=== PATIENT | male | born 1985 | race Caucasian/White ===

== ENCOUNTER 2018-12-27 09:00 | Outpatient (CLI) | payer OTHER ==
[2018-12-28 12:26] LABS: HEPATITIS A IGM NON-REACTIVE (NON-REACTIVE); HEPATITIS B SURFACE ANTIGEN NON-REACTIVE (NON-REACTIVE); HEPATITIS C ANTIBODY NON-REACTIVE (NON-REACTIVE)
[2018-12-28 14:49] LABS: HIV AG/AB 4TH GEN NON-REACTIVE (NON-REACTIVE)
[2018-12-28 18:41] LABS: TRICHOMONAS VAGINALIS DNA NEGATIVE (NEGATIVE)
[2018-12-29 13:36] LABS: HSV 2 IGG TYPE SPECIFIC AB <0.90 index
== END 2018-12-27 23:59 | disposition home or self-care (01) ==
LOC: LAB.WCP 09:00
PROVIDERS: ATTEND Family Medicine
DX: Z11.3 Encounter for screening for infections with a predominantly sexual mode of transmission (principal)
CPT/HCPCS: 36415; 80074; 81599; 86592; 86695; 86696; 87389; 87491; 87591; 87661

== ENCOUNTER 2019-03-19 14:13 | Outpatient (CLI) | payer OTHER ==
[2019-03-20 20:13] VITALS: BP 138/84
--- NOTE | 2019-03-20 20:13 | SLEEP CARE CONSULTATION ---
Information from patient questionnaire entered by Eugenia Vail. I have reviewed and concur with the information entered by Eugenia Vail. This document represents the service I personally performed and the decisions made by me, Melo Jean MD, [facility]. History of Present Illness Reason for Visit: New patient, Previously diagnosed sleep apnea Chief Complaint: reports: Insomnia, Unrefreshed sleep, Snoring, Excessive daytime sleepiness, Observed pauses in breathing, Fatigue, Frequent awakenings at night Duration of Symptoms: 10+ years Usual bedtime: 2100 Snores at night: Yes Observed to quit breathing while asleep: Yes Sleeps alone due to snoring: No Number of times waking at night: 5-10 Toss, Turn, or Twitch while sleeping: Yes Recalls having dreams: No Usually gets out of bed at: [id number] Feels refreshed in the morning: No Morning headache: No Sleepy or fatigued during the day: Yes Ever fallen asleep while driving: Yes Takes day naps: Yes Prior sleep studies: Yes Year and Where: 2011 [facility] Additional HPI information: I had the pleasure of seeing Mr. Doty today regarding obstructive sleep apnea- hypopnea. As you know, he is a 34 year old gentleman who was diagnosed with the sleep-disordered breathing at the [facility] in 2011. The AHI was 30.1 and unique oxygen saturation of 71%. He was prescribed a CPAP device set at 5 8 cmH 2O. He uses every night and all night. He feels that the pressure is not adequate. His still hears him snore through the CPAP. His memory card only contains data from 2013. He wears a nasal mask but also has a full face mask for when he cannot breathe through his nose. He gets his supplies from [employer]. He finds the treatment very helpful. He is more awake/alert during the day. 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 Patient is and lives in [place]. Have you smoked in the past 12 months: No Alcohol use: No Caffeine use: No Family History Family history of sleep disordered breathing: No Allergies and Home Medications Drug allergies reviewed: Yes (NKDA) Home medication list reviewed: Yes (none) Review of Systems Weight gain over past 5 years: 20 Cardiovascular: denies: high blood pressure, palpitations, chest pain, irregular heart rate or pulse, leg or foot swelling, have to sleep sitting up, other Respiratory: denies: shortness of breath, wheeze, sputum production, chronic cough, other Gastrointestinal: reports: difficulty swallowing, diarrhea Urinary: denies: incontinence, frequency, urgency, impotence, other Neurological: denies: headaches, seizure, head trauma, disorientation, speech dysfunction, gait or balance problems, fainting or unconsciousness, other Psychiatric: reports: anxiety, depression Ear/Nose/Throat: reports: nasal congestion, sinus problems, nose bleeds, dry mouth/throat, tonsillectomy, wisdom teeth removed Endocrine: reports: too hot or cold, excessive thirst Musculoskeletal: denies: joint pain, neck pain, back pain, joint swelling, muscle pain or cramping, mobility problems, other Immunologic: denies: sneezing, rash, itching, allergies to food or environment, other Physical Exam Vital signs obtained and entered by: Dr. Jean Blood Pressure: 138/84 Cuff size: regular Heart Rate: 75 O2 Saturation: 97 Height: 5 ft 9 in Weight: 270 lb Body Mass Index: 39.9 BMI Classification: Obesity Class 2 Neck circumference: 18 Mood/affect: normal HEENT: No craniofacial malformation Nostrils: patent to airflow Turbinates: normal Septum: midline Mouth and throat: narrow oropharynx Soft palate: long Hard palate: normal Uvula: normal Uvula visualization: 25% Mallampati Class III Tongue: enlarged in size with teeth merchant on lateral edges Tonsils: absent bilaterally Chin and jaw: normal size and position Neck: normal w/o lymphadenopathy or thyromegaly Heart: regular rate and rhythm Lungs: clear bilaterally Abdomen: soft, non-tender Extremities: no edema or clubbing Neurologic: intact, no focal deficits Impression and Plan IMPRESSION: 1. Obstructive Sleep Apnea-Hypopnea Syndrome, severe, as previously diagnosed. The patient has had good treatment compliance. The patient experiences improvement on the treatment. The effectiveness is unknown. He does feel that the pressure is set too low, possibly because he has gained significant amount of weight since the diagnosis. Narrow oropharynx and obesity are common predisposing factors for obstructive sleep apnea-hypopnea syndrome. Because the CPAP is now older than the useful life of 5 years, I will order the patient a new one and make it an autoCPAP set between 7 and 12 cmH2O. Plan: 1. Prescription made for an autoCPAP, heated humidifier, and related supplies. 2. Avoid long distance driving or when feeling sleepy. 3. Avoid alcohol, sedative and muscle relaxant around bedtime. 4. Attempt to lose weight. 5. Return for follow up after one month on the new machine. I spent 100% of this visit face to face with the patient with greater than 50% of this was spent time counseling the patient and coordination of care.
== END 2019-03-19 14:14 | disposition home or self-care (01) ==
LOC: SC 14:13
PROVIDERS: ATTEND Internal Medicine Pulmonary Disease
DX: G47.33 Obstructive sleep apnea (adult) (pediatric) (principal); E66.9 Obesity, unspecified; Z68.39 Body mass index [BMI] 39.0-39.9, adult
CPT/HCPCS: 99203; 99212

== ENCOUNTER 2019-06-17 15:44 | Outpatient (CLI) | payer OTHER ==
--- NOTE | 2019-06-17 15:32 | SLEEP CARE CONSULTATION ---
Information from patient questionnaire entered by Eugenia Vail. I have reviewed and concur with the information entered by Eugenia Vail. This document represents the service I personally performed and the decisions made by me, Melo Jean MD, [facility]. History of Present Illness Service Date and Time: 06/17/2019 1540 Previous diagnosis: Severe, Obstructive Sleep Apnea-Hypopnea Syndrome AHI: 30.1 Reason for follow up: first compliance Equipment type: CPAP Equipment obtained from: [employer] [facility] additional information: To minimize the risk of COVID-19 exposure, the patient has requested and consented to this video telemedicine visit. The patient also agrees to having his insurance billed. HPI: Mr. Doty was called today to follow up on the nasal CPAP therapy. He was diagnosed to have severe obstructive sleep apnea-hypopnea syndrome. The patient wears a nasal mask. He reports using the device nightly and all through the night. The compliance report shows usage in 30 nights out of the past 30 nights, averaging 8 hours a night. The > 4 hour compliance rate for the past 30 days is 100%. He complained of no particular problem with the device such as soreness on the face, dry nose, epistaxis, nasal congestion or headache. He thinks that the pressure of 7 12 cmH2O is comfortable. On the CPAP therapy he notices improvement in his sleep quality, and that he wakes up feeling fresher in the morning and more awake/alert during the day. His notices no snore at all. The average residual AHI is 0.4; and average air leak is 0 L/minute. The 90th percentile pressure is 10 cmH2O. CPAP Compliance Data - Data Reviewed with Patient Average duration of nightly device use: 7H 58M Compliance rate %: 100 Current pressure setting (cmH2O): 7-12 Subjective Initial [place] Sleepiness Scale score: 7 Allergies and Home Medications Drug allergies reviewed: Yes Home medication list reviewed: Yes Review of Systems Review of systems same as previous: Yes Physical Exam Height: 5 ft 9 in Impression and Plan IMPRESSION: 1. Obstructive Sleep Apnea-Hypopnea Syndrome, severe (30.1), with the patient doing well on nasal CPAP therapy. He has excellent compliance and significant clinical improvement. The current pressure appears effective and comfortable. His mask fits well. Overall, he is very satisfied with treatment and plans to continue with it long-term. No adjustment is necessary today. PLAN: 1. Continue with autoCPAP set at 7 - 12 cmH2O. 2. Try to lose weight 3. Try other masks and nasal pillows. 4. Return in one year for follow up or earlier if there is any problem with the treatment. Visit Type: Telehealth Video Video Type: Bib + Tuck Patient Location: Home Other Participants: Spouse/Significant Other Location of Provider: Office Patient agrees and consents to this telehealth visit type: Yes Patient agrees to have their insurance billed: Yes Time Spent with Patient (minutes): 12 Provider Statement: I spent 100% of the Telehealth Video Call with the patient with greater than 50% spent counseling the patient and coordination of care.
== END 2019-06-17 15:45 | disposition home or self-care (01) ==
LOC: SC 15:44
PROVIDERS: ATTEND Internal Medicine Pulmonary Disease
DX: G47.33 Obstructive sleep apnea (adult) (pediatric) (principal)

== ENCOUNTER 2021-01-14 14:40 | Outpatient (CLI) | payer OTHER ==
--- NOTE | 2021-01-14 16:24 | Ultrasound Report ---
PROCEDURE: Testicle INDICATIONS: TESTICULAR PAIN TECHNIQUE: Real-time scanning was performed of the scrotum and testicles, with image documentation. Color and p ulse Doppler interrogation was performed of both testicles. COMPARISON: None. FINDINGS: Right: Testicle is normal in size at 4.1 x 2.1 x 3.1 cm, and homogenous in echotexture. Epididymis is normal in overall size and morphology. Moderate hydrocele with internal echo. No varicoceles. Ove rlying scrotal skin is normal in thickness. Left: Testicle is normal in size at 4.3 x 2.2 x 3.1 cm, and homogeneous in echotexture. Epididymis is normal in overall size and morphology. Moderate hydrocele with internal echo. No varicoceles. Ov erlying scrotal skin is normal in thickness. Doppler: Color and pulse Doppler demonstrate normal and symmetric arterial flow in both testicles. IMPRESSION: 1. Normal ultrasound appearance of testes bilaterally. No findings to suggest testicular torsion. No testicular mass. 2. Normal epididymis months bilaterally. No ultrasound findings to suggest acute epididymitis. 3. Moderate hydrocele with internal echo in scrotum bilaterally. Differential diagnoses include hemat ocele versus pyecele. Recommend clinical correlation. Reviewed by: Josh Gautam MD on 01/14/2021 4:22 PM PST Approved by: Josh Gautam MD on 01/14/2021 4:22 PM PST Station ID: [id number]
== END 2021-01-14 14:41 | disposition home or self-care (01) ==
LOC: DI 14:40
PROVIDERS: ATTEND Physician Assistant
DX: N50.812 Left testicular pain (principal); N43.3 Hydrocele, unspecified

== ENCOUNTER 2021-03-31 08:26 | Outpatient (CLI) | payer OTHER ==
[2021-03-31 11:50] LABS: BASOPHILS % (AUTO) 0.7 %; EOSINOPHILS # (AUTO) 0.1 10^3/uL (0.0-0.7); EOSINOPHILS % (AUTO) 0.8 %; HCT - HEMATOCRIT 44.5 % (42.0-52.0); HGB - HEMOGLOBIN 15.1 g/dL (14.0-18.0); LYMPHOCYTES # (AUTO) 1.4 10^3/uL (1.5-3.5); MEAN CORPUSCULAR HEMOGLOBIN 31.2 pg (27.0-31.0); MEAN CORPUSCULAR HGB CONC 33.9 g/dL (32.0-36.0); MEAN CORPUSCULAR VOLUME 91.9 fL (80.0-94.0); MEAN PLATELET VOLUME 11.9 fL (7.4-11.4); MONOCYTES # (AUTO) 0.5 10^3/uL (0.0-1.0); MONOCYTES % (AUTO) 8.8 %; NEUTROPHILS # (AUTO) 4.1 10^3/uL (1.5-6.6); NEUTROPHILS % (AUTO) 66.5 %; PLT - PLATELET COUNT 219 10^3/uL (130-450); RED BLOOD COUNT 4.84 10^6/uL (4.70-6.10); RED CELL DISTRIBUTION WIDTH 12.6 % (12.0-15.0); WHITE BLOOD COUNT 6.1 x10^3/uL (4.8-10.8)
[2021-03-31 12:34] LABS: ALBUMIN/GLOBULIN RATIO 1.1 (1.0-2.2); BILIRUBIN,TOTAL 0.7 mg/dL (0.2-1.0); CALCIUM 9.2 mg/dL (8.5-10.3); CREATININE 1.1 mg/dL (0.6-1.2); POTASSIUM 4.1 mmol/L (3.5-5.0); TOTAL PROTEIN 7.6 g/dL (6.7-8.2)
[2021-03-31 12:43] LABS: THYROID STIMULATING HORMONE 1.98 uIU/mL (0.34-5.60)
[2021-03-31 21:10] LABS: CHLAMYDIA TRACHOMATIS DNA NEGATIVE (NEGATIVE); NEISSERIA GONORRHOEAE DNA NEGATIVE (NEGATIVE)
[2021-04-01 14:02] LABS: HIV AG/AB 4TH GEN NON-REACTIVE (NON-REACTIVE)
== END 2021-03-31 08:27 | disposition home or self-care (01) ==
LOC: LAB.N 08:26
PROVIDERS: ATTEND Family Medicine
DX: R53.83 Other fatigue (principal); Z11.3 Encounter for screening for infections with a predominantly sexual mode of transmission
CPT/HCPCS: 36415; 80053; 81599; 84402; 84403; 84443; 85025; 86592; 87389; 87491; 87591; 87661

== ENCOUNTER 2021-05-31 15:57 | Outpatient (CLI) | payer OTHER ==
--- NOTE | 2021-05-31 15:44 | SLEEP CARE CONSULTATION ---
Information from patient questionnaire entered by Medina Jensen. I have reviewed and concur with the information entered by Medina Jensen. This document represents the service I personally performed and the decisions made by me, Melo Jean MD, [facility]. History of Present Illness Service Date and Time: 05/31/2021 1520 Previous diagnosis: Severe, Obstructive Sleep Apnea-Hypopnea Syndrome AHI: 30.1 Reason for follow up: annual (LAST SEEN 06/2019, RX FOR SUPPLIES) Equipment type: CPAP Prior sleep studies: Yes Year and Where: 2011 [facility] HPI additional information: Mr. Doty was called today to follow up on the nasal CPAP therapy. He was diagnosed to have severe obstructive sleep apnea-hypopnea syndrome. [employer] is his durable medical supplier. The patient wears a nasal mask. He reports using the device nightly and all through the night. The compliance report shows usage in 319 nights out of the past 365 nights, averaging 7.7 hours a night. The > 4 hour compliance rate for the past 365 days is 87%. The nights he did not use was because he was out of town and used his old S9 device. He complained of the [employer]Med AirSense 10 turning itself of at least 3 times and would not restart. No particular problem with the device such as soreness on the face, dry nose, epistaxis, nasal congestion or headache. He thinks that the pressure of 7 12 cmH2O is comfortable. On the CPAP therapy he notices improvement in his sleep quality, and that he wakes up feeling fresher in the morning and more awake/alert during the day. His notices no snore at all. The average residual AHI is 0.8; and average air leak is 1.0 L/minute. The 90th percentile pressure is 10.5 cmH2O. Sleep Study - Results Prior sleep studies: Yes Year and Where: 2011 [facility] Subjective Initial [place] Sleepiness Scale score: 7 Allergies and Home Medications Drug allergies reviewed: Yes Home medication list reviewed: Yes Review of Systems Review of systems same as previous: Yes Physical Exam Vital signs obtained and entered by: KAT MCKOY Height: 5 ft 9 in Impression and Plan 1. Obstructive Sleep Apnea-Hypopnea Syndrome, severe (AHI = 30.1), with the patient doing well on nasal CPAP therapy. He has excellent compliance and significant clinical improvement. The current pressure appears effective and comfortable. His mask fits well. Overall, he is very satisfied with treatment and plans to continue with it long-term. No adjustment is necessary today. PLAN: 1. Continue with autoCPAP set at 7 - 12 cmH2O. 2. Try to lose weight 3. Contact his durable medical supplier to have the device repaired. 4. Return in one year for follow up or earlier if there is any problem with the treatment. Continue with device pressure at (cmH2O): 7 - 12 Follow up with Sleep Care in: 1 year Visit Type: Telehealth Video (PHONE# [phone]) Video Type: Doximity Patient Location: car Location of Provider: Home Patient agrees and consents to this telehealth visit type: Yes Patient agrees to have their insurance billed: Yes Time Spent with Patient (minutes): 15 Provider Statement: I spent 100% of the Telehealth Video Call with the patient with greater than 50% spent counseling the patient and coordination of care.
== END 2021-05-31 15:58 | disposition home or self-care (01) ==
LOC: SC 15:57
PROVIDERS: ATTEND Internal Medicine Pulmonary Disease
DX: G47.33 Obstructive sleep apnea (adult) (pediatric) (principal)

== ENCOUNTER 2021-06-17 16:26 | Outpatient (CLI) | payer OTHER ==
--- NOTE | 2021-06-18 14:30 | XRAY Report ---
PROCEDURE: Lumbar Spine 2 View INDICATIONS: LOW BACK PAIN TECHNIQUE: 2 views of the lumbar spine were acquired. COMPARISON: None. FINDINGS: Bones: 5 [id number] vertebrae are present. There is trace retrolisthesis of L1 on L2, L2 on L3 , L3-4. Moderate to severe disc and foraminal narrowing is noted at L5-S1.. No vertebral body compre ssion fractures. No suspicious bony lesions. Soft tissues: Overlying bowel gas pattern is normal. No suspicious soft tissue calcifications. IMPRESSION: Disc and foraminal narrowing is most notable at L5-S1. Reviewed by: Snehal Pollack MD on 06/18/2021 2:29 PM PDT Approved by: Snehal Pollack MD on 06/18/2021 2:29 PM PDT Station ID: [id number]
== END 2021-06-17 23:59 | disposition home or self-care (01) ==
LOC: DI.N 16:26
PROVIDERS: ATTEND Nurse Practitioner
DX: M47.817 Spondylosis without myelopathy or radiculopathy, lumbosacral region (principal)

== ENCOUNTER 2021-10-28 08:00 | Outpatient (CLI) | payer OTHER ==
[2021-10-28 23:50] LABS: CHLAMYDIA TRACHOMATIS DNA NEGATIVE (NEGATIVE); NEISSERIA GONORRHOEAE DNA NEGATIVE (NEGATIVE)
== END 2021-10-28 23:59 | disposition home or self-care (01) ==
LOC: LAB.N 08:00
PROVIDERS: ATTEND Nurse Practitioner
DX: N48.1 Balanitis (principal)
CPT/HCPCS: 87491; 87591; 87661